=== PATIENT | male | born 1945 | race Asian ===

== ENCOUNTER 2017-06-28 08:08 | Emergency (ER) | payer OTHER ==
[2017-06-28] MEDS: MECLIZINE 12.5 MG TAB PO (10:00)
[2017-06-28 10:21] LABS: ADD MAN DIFF? NO
[2017-06-28 10:23] LABS: WHITE BLOOD COUNT 7.6 10^3/ul (4.8-10.8)
[2017-06-28 10:23] LABS: BASOPHILS % 0.5 % (0.0-2.0); EOSINOPHILS # 0.2 10^3/ul (0.0-0.5); HEMATOCRIT 42.1 % (42.0-52.0); HEMOGLOBIN 14.1 g/dl (14.0-18.0); LYMPHOCYTES % 12.7 % (15.0-51.0); MEAN CORPUSCULAR HEMOGLOBIN 29.5 pg (29.0-33.0); MEAN CORPUSCULAR HGB CONC 33.5 g/dl (32.0-37.0); MEAN CORPUSCULAR VOLUME 88.1 fl (82.0-101.0); MEAN PLATELET VOLUME 9.3 fl (7.4-10.4); MONOCYTE # 0.4 10^3/ul (0.3-0.9); MONOCYTES % 4.6 % (0.0-11.0); NEUTROPHILS % 79.8 % (39.0-77.0); PLATELET COUNT 257 10^3/UL (140-415); RED BLOOD COUNT 4.78 10^6/ul (4.70-6.10); RED CELL DISTRIBUTION WIDTH 11.9 % (11.5-14.5)
[2017-06-28 10:55] LABS: INR 0.91; PROTIME 12.3 Sec (11.9-14.9)
[2017-06-28 10:56] LABS: PARTIAL THROMBOPLASTIN TIME 31.1 Sec (25.0-35.0)
[2017-06-28 10:59] LABS: ANION GAP 15 (8-16); BLOOD UREA NITROGEN 12 mg/dl (7-20); CALCIUM 9.4 mg/dl (8.4-10.2); CARBON DIOXIDE 30 mmol/L (21-31); CHLORIDE 100 mmol/L (97-110); CREATININE 0.63 mg/dl (0.61-1.24); GLUCOSE 123 mg/dl (70-220); POTASSIUM 4.1 mmol/L (3.5-5.1); SODIUM 141 mmol/L (135-144)
[2017-06-28 11:13] LABS: HEMOGLOBIN A1C 5.7 % (0-5.9)
[2017-06-28 11:20] LABS: TROPONIN-I < 0.012 ng/ml (0.00-0.12)
== END 2017-06-28 12:45 | disposition home or self-care (01) ==
LOC: E/R 08:08
DX: R42 Dizziness and giddiness (principal); I10 Essential (primary) hypertension; E11.9 Type 2 diabetes mellitus without complications; R06.02 Shortness of breath; Z79.82 Long term (current) use of aspirin; Z79.84 Long term (current) use of oral hypoglycemic drugs
CPT/HCPCS: 36415; 70450; 71010; 80048; 83036; 84484; 85025; 85610; 85730; 93005; 99285-25